=== PATIENT | female | born 2000 ===

== ENCOUNTER 2021-08-17 07:19 | Inpatient (IN) | payer MEDICAID ==
[2021-08-17] MEDS ORDERED: Sodium Chloride 0.9% 20 ML SDV IV PRN (07:33)
[2021-08-17] MEDS ORDERED: Carboprost Tromethamine 250 MCG/1 ML Amp IM PRN (07:33)
[2021-08-17] MEDS ORDERED: Sodium Chloride 0.9% 2.5 ML Syringe FLUSH PRN (07:33)
[2021-08-17] MEDS ORDERED: Ampicillin 2 GM in Sodium Chloride 0.9% 100 ML IV ONE (07:33)
[2021-08-17] MEDS ORDERED: Methylergonovine 0.2 MG/1 ML Amp IM PRN (07:33)
[2021-08-17] MEDS ORDERED: Butorphanol 1 MG/ML SDV IVPUSH PRN (07:33)
[2021-08-17] MEDS ORDERED: Misoprostol 200 MCG Tab PO PRN (07:33)
[2021-08-17] MEDS ORDERED: Tranexamic Acid 1,000 MG in Sodium Chloride 0.9% 100 ML IV PRN (07:33)
[2021-08-17] MEDS ORDERED: Water For Irrigation,Sterile 1,000 ML Container IRR PRN (07:33)
[2021-08-17] MEDS ORDERED: Lidocaine 1% 50 ML MDV INJECT PRN (07:33)
[2021-08-17] MEDS ORDERED: Sodium Chloride 0.9% 10 ML Syringe FLUSH PRN (07:33)
[2021-08-17] MEDS ORDERED: Ampicillin 2 GM AdvVial IV ONE (07:38)
[2021-08-17] MEDS ORDERED: Sodium Chloride 0.9% 100 ML ONE (07:38)
[2021-08-17] MEDS ORDERED: Lactated Ringers 1,000 ML IV SCH (07:45)
[2021-08-17] MEDS ORDERED: Oxytocin/0.9 % Sodium Chloride 30 UNIT/500 ML BAG IV SCH (07:45)
[2021-08-17] MEDS ORDERED: Lidocaine 2% with EPINEPHrine 1:200,000 20 ML SDV ONE (07:51)
[2021-08-17] MEDS ORDERED: ePHEDrine 50 MG/ML SDV IVPUSH PRN ×2 (08:09)
[2021-08-17] MEDS ORDERED: Ropivacaine HCl/PF 400 MG in Premix Bag 1 BAG EPIDUR SCH (08:15)
[2021-08-17] MEDS ORDERED: Ampicillin 1 GM in Sodium Chloride 0.9% 50 ML IV SCH (12:00)
[2021-08-17] MEDS ORDERED: Benzocaine/Menthol 20%-0.5% Spray 78 GM Cannister TOP PRN (14:04)
[2021-08-17] MEDS ORDERED: Witch Hazel Medicated Pads 40/Jar TOP PRN (14:04)
[2021-08-17] MEDS ORDERED: Ibuprofen 400 MG Tab PO PRN (14:04)
[2021-08-17] MEDS ORDERED: Lanolin 100% Cream 7 GM Tube TOP PRN (14:04)
[2021-08-17] MEDS ORDERED: Bisacodyl 10 MG Supp RECTAL PRN (14:04)
[2021-08-17] MEDS ORDERED: Docusate Sodium 100 MG Cap PO PRN (14:04)
[2021-08-17] MEDS ORDERED: Acetaminophen 500 MG Tab PO PRN ×2 (14:04)
[2021-08-17] MEDS: Ibuprofen 800 MG Tab PO PRN (19:54)
[2021-08-18] MEDS: Ibuprofen 800 MG Tab PO PRN (08:11)
== END 2021-08-18 16:50 | disposition home or self-care (01) | DRG 807 ==
LOC: MW.OBCHECK 07:19 → MW.OB 07:20 → MW.OBCHECK 07:33 → MW.OB 07:33 → OBSVTOIN 12:23 → MW.OB 16:20
PROVIDERS: ADMIT Obstetrics & Gynecology Obstetrics; ATTEND Obstetrics & Gynecology Obstetrics
PROC: 10E0XZZ Delivery of Products of Conception, External Approach (ICD-10-PCS; principal; 2021-08-17)
PROC: 3E0R3BZ Introduction of Anesthetic Agent into Spinal Canal, Percutaneous Approach (ICD-10-PCS; 2021-08-17)
PROC: 00HU33Z Insertion of Infusion Device into Spinal Canal, Percutaneous Approach (ICD-10-PCS; 2021-08-17)
DX: O99.824 Streptococcus B carrier state complicating childbirth (principal); Z37.0 Single live birth; Z3A.39 39 weeks gestation of pregnancy; O69.81X0 Labor and delivery complicated by cord around neck, without compression, not applicable or unspecified; Z20.822 Contact with and (suspected) exposure to COVID-19
CPT/HCPCS: 01967; 36415; 51702; 85014; 85018; 85027; 86592; 86762; 86803; 86850; 86900; 86901; 87340; A9270-GY; J0290; J2370; J2590; J2795; J7120; U0002